=== PATIENT | male | born 1975 | race Caucasian/White ===

== ENCOUNTER 2019-07-25 19:38 | Inpatient (IN) ==
[2019-07-25] MEDS ORDERED: *HR* Ticagrelor 90 MG TABLET ONE (19:40)
[2019-07-25] MEDS ORDERED: *HR* Heparin 5,000 UNIT/ML VIAL ONE (19:40)
[2019-07-25] MEDS ORDERED: Aspirin 81 MG TAB.CHEW ONE (19:41)
[2019-07-25] MEDS ORDERED: *HR* Heparin 5,000 UNIT/ML VIAL IVP PRN ×2 (19:48)
[2019-07-25] MEDS ORDERED: *HR* Heparin 5,000 UNIT/ML VIAL IVP ONE (19:48)
[2019-07-25 19:55] LABS: Hematocrit 48.3 % (37.5-50.1); Hemoglobin 15.7 g/dL (12.9-16.9); Mean Corpuscular HGB Conc 32.5 g/dL (31.6-35.5); Mean Corpuscular Hemoglobin 28.4 pg (28.0-33.3); Mean Corpuscular Volume 87.5 fL (83.0-100.0); Mean Platelet Volume 11.2 fL (9.4-12.4); Platelet Count 246 K/mcL (140-400); Red Blood Count 5.52 M/mcL (4.19-5.50); Red Cell Distribution Width 13.7 % (11.5-14.5); White Blood Count 10.8 K/mcL (4.3-11.1)
[2019-07-25] MEDS ORDERED: Heparin 25,000 UNIT/250 ML D5W 25,000 UNIT/250 ML IV.SOLN IVC SCH (20:00)
[2019-07-25 20:02] LABS: Heparin anti-factor XA UFH < 0.04 IU/mL (0.30-0.70); INR 0.9; Prothrombin Time 10.3 Seconds (9.4-12.1)
[2019-07-25 20:05] LABS: Activated Partial Thrombo Time 30.1 Seconds (26.0-36.0)
[2019-07-25] MEDS ORDERED: *HR* Ticagrelor 90 MG TABLET PO ONE (20:05)
[2019-07-25] MEDS ORDERED: ISOVUE-370 200 ML INFUS..BTL ONE ×2 (20:16→21:02)
[2019-07-25] MEDS ORDERED: Heparin 1,000 UNITS/500 mL 500 ML ONE (20:16)
[2019-07-25] MEDS ORDERED: Nitroglycerin 1,000 MCG/10 ML VIAL IV ONE (20:16)
[2019-07-25] MEDS ORDERED: 0.9 % Sodium Chloride 2,000 ML ONE (20:16)
[2019-07-25] MEDS ORDERED: *HR* Heparin 10,000 UNIT/10 ML VIAL ONE ×2 (20:16→21:02)
[2019-07-25] MEDS ORDERED: *HR* FentaNYL (PF) 100 MCG/2 ML VIAL ONE ×2 (20:24→21:18)
[2019-07-25] MEDS ORDERED: *HR* Midazolam HCl 2 MG/2 ML VIAL ONE (20:24)
[2019-07-25] MEDS ORDERED: Tirofiban 12.5 MG/250ML 12.5 MG/250 ML BAG IVC SCH (20:30)
[2019-07-25] MEDS ORDERED: Tirofiban 12.5 MG/250ML 12.5 MG/250 ML BAG ONE (20:47)
[2019-07-25 20:51] LABS: BUN/Creatinine Ratio 20 (6-26); Blood Urea Nitrogen 17 mg/dL (6-20); Calcium 9.4 mg/dL (8.6-10.3); Carbon Dioxide 28 mEq/L (23-29); Chloride 103 mEq/L (98-107); Glucose 119 mg/dL (70-105); Osmolality,Calculated 291 (280-300); Sodium 139 mEq/L (136-145); eGFR For African Americans > 60 (> 60); eGFR For Non-African Americans > 60 (> 60)
[2019-07-25 20:56] LABS: Troponin I 0.98 ng/mL (< 0.04)
[2019-07-26] MEDS ORDERED: *HR* HYDROcodone/Acet 7.5/325 mg TABLET PO ONE (04:06)
[2019-07-26 04:15] LABS: Basophils # 0.1 K/mcL (0.0-0.2); Basophils % 0.7 %; Eosinophils # 0.6 K/mcL (0.0-0.6); Eosinophils % 7.7 %; Hematocrit 44.9 % (37.5-50.1); Hemoglobin 14.9 g/dL (12.9-16.9); Immature Granulocytes % 0.2 % (0-4); Lymphocytes # 1.6 K/mcL (0.6-4.6); Lymphocytes % 19.5 %; Mean Corpuscular HGB Conc 33.2 g/dL (31.6-35.5); Mean Corpuscular Hemoglobin 28.7 pg (28.0-33.3); Mean Corpuscular Volume 86.5 fL (83.0-100.0); Mean Platelet Volume 11.3 fL (9.4-12.4); Monocytes # 0.7 K/mcL (0.0-1.3); Monocytes % 7.9 %; Neutrophils # 5.3 K/mcL (1.6-8.9); Platelet Count 243 K/mcL (140-400); Red Blood Count 5.19 M/mcL (4.19-5.50); Red Cell Distribution Width 13.8 % (11.5-14.5); White Blood Count 8.4 K/mcL (4.3-11.1)
[2019-07-26 04:30] LABS: BUN/Creatinine Ratio 19 (6-26); Blood Urea Nitrogen 12 mg/dL (6-20); Carbon Dioxide 26 mEq/L (23-29); Chloride 105 mEq/L (98-107); Glucose 111 mg/dL (70-105); Osmolality,Calculated 286 (280-300); Sodium 138 mEq/L (136-145); eGFR For African Americans > 60 (> 60); eGFR For Non-African Americans > 60 (> 60)
[2019-07-26] MEDS ORDERED: Perflutren Lipid Microsphere 1.3 ML in 0.9 % Sodium Chloride 8.7 ML IVP ONE (07:59)
[2019-07-26] MEDS ORDERED: Temazepam 15 MG CAPSULE PO PRN (08:13)
[2019-07-26] MEDS ORDERED: *HR* HYDROcodone/Acet 7.5/325 mg TABLET PO PRN (08:13)
[2019-07-26] MEDS ORDERED: Nitroglycerin 0.4 MG TAB.SUBL SL PRN ×2 (08:15→10:32)
[2019-07-26] MEDS ORDERED: Aspirin 81 MG TAB.CHEW PO SCH (09:00)
[2019-07-26] MEDS ORDERED: Loratadine 10 MG TABLET PO SCH (09:00)
[2019-07-26] MEDS ORDERED: methocarbamoL 750 MG TABLET PO SCH (09:00)
[2019-07-26] MEDS ORDERED: *HR* Ticagrelor 90 MG TABLET PO SCH (09:00)
[2019-07-26] MEDS ORDERED: BuPROPion XL (24 HR) 150 MG TABLET PO SCH (09:00)
[2019-07-26] MEDS ORDERED: Cholecalciferol (D-3) 1,000 UNIT (25MCG) TABLET PO SCH (09:00)
[2019-07-26] MEDS ORDERED: Pregabalin 75 MG CAPSULE PO SCH (09:00)
[2019-07-26] MEDS: *HR* HYDROcodone/Acet 7.5/325 mg TABLET PO PRN ×2 (12:00→20:10)
[2019-07-26] MEDS: methocarbamoL 750 MG TABLET PO SCH ×2 (16:58→20:10)
[2019-07-26] MEDS ORDERED: *HR* Heparin 5,000 UNIT/ML VIAL SQ SCH (18:00)
[2019-07-26] MEDS: *HR* Heparin 5,000 UNIT/ML VIAL SQ SCH (18:14)
[2019-07-26] MEDS: Pregabalin 75 MG CAPSULE PO SCH (20:09)
[2019-07-26] MEDS: *HR* Ticagrelor 90 MG TABLET PO SCH (20:11)
[2019-07-26] MEDS: Temazepam 15 MG CAPSULE PO PRN (20:11)
[2019-07-27 04:43] LABS: Basophils # 0.1 K/mcL (0.0-0.2); Basophils % 0.6 %; Eosinophils # 0.5 K/mcL (0.0-0.6); Eosinophils % 5.2 %; Hematocrit 45.2 % (37.5-50.1); Hemoglobin 15.2 g/dL (12.9-16.9); Immature Granulocytes % 0.3 % (0-4); Lymphocytes # 2.1 K/mcL (0.6-4.6); Lymphocytes % 20.6 %; Mean Corpuscular HGB Conc 33.6 g/dL (31.6-35.5); Mean Corpuscular Hemoglobin 29.3 pg (28.0-33.3); Mean Corpuscular Volume 87.1 fL (83.0-100.0); Mean Platelet Volume 11.6 fL (9.4-12.4); Monocytes # 0.9 K/mcL (0.0-1.3); Monocytes % 8.7 %; Neutrophils # 6.5 K/mcL (1.6-8.9); Platelet Count 221 K/mcL (140-400); Red Blood Count 5.19 M/mcL (4.19-5.50); Segmented Neutrophils % 64.6 %; White Blood Count 10.1 K/mcL (4.3-11.1)
[2019-07-27 05:02] LABS: BUN/Creatinine Ratio 22 (6-26); Blood Urea Nitrogen 14 mg/dL (6-20); Calcium 9.4 mg/dL (8.6-10.3); Carbon Dioxide 26 mEq/L (23-29); Chloride 104 mEq/L (98-107); Chol/HDL Ratio 5.8 (0-4.9); Cholesterol 197 mg/dL (< 200); Glucose 100 mg/dL (70-105); HDL Cholesterol 34 mg/dL (40-59); LDL Cholesterol,Calculated 87 mg/dL (0-99); Osmolality,Calculated 283 (280-300); Sodium 136 mEq/L (136-145); Triglycerides 378 mg/dL (< 150); eGFR For African Americans > 60 (> 60); eGFR For Non-African Americans > 60 (> 60)
[2019-07-27] MEDS: *HR* Heparin 5,000 UNIT/ML VIAL SQ SCH ×2 (05:54→18:20)
[2019-07-27] MEDS: Isosorbide MONOnitrate (24 HR) 30 MG TAB.ER.24H PO SCH (08:23)
[2019-07-27] MEDS: Pregabalin 75 MG CAPSULE PO SCH ×2 (08:23→20:08)
[2019-07-27] MEDS: Loratadine 10 MG TABLET PO SCH (08:23)
[2019-07-27] MEDS: Cholecalciferol (D-3) 1,000 UNIT (25MCG) TABLET PO SCH (08:23)
[2019-07-27] MEDS: Aspirin 81 MG TAB.CHEW PO SCH (08:24)
[2019-07-27] MEDS: *HR* Ticagrelor 90 MG TABLET PO SCH ×2 (08:24→20:09)
[2019-07-27] MEDS: methocarbamoL 750 MG TABLET PO SCH ×3 (08:24→20:08)
[2019-07-27] MEDS: BuPROPion XL (24 HR) 150 MG TABLET PO SCH (08:25)
[2019-07-27] MEDS: *HR* HYDROcodone/Acet 7.5/325 mg TABLET PO PRN ×3 (08:27→21:10)
[2019-07-27] MEDS: Temazepam 15 MG CAPSULE PO PRN (21:10)
[2019-07-28] MEDS: *HR* Heparin 5,000 UNIT/ML VIAL SQ SCH (04:59)
[2019-07-28] MEDS: BuPROPion XL (24 HR) 150 MG TABLET PO SCH (08:09)
[2019-07-28] MEDS: Cholecalciferol (D-3) 1,000 UNIT (25MCG) TABLET PO SCH (08:10)
[2019-07-28] MEDS: Pregabalin 75 MG CAPSULE PO SCH (08:10)
[2019-07-28] MEDS: *HR* HYDROcodone/Acet 7.5/325 mg TABLET PO PRN (08:10)
[2019-07-28] MEDS: Isosorbide MONOnitrate (24 HR) 30 MG TAB.ER.24H PO SCH (08:11)
[2019-07-28] MEDS: *HR* Ticagrelor 90 MG TABLET PO SCH (08:11)
[2019-07-28] MEDS: methocarbamoL 750 MG TABLET PO SCH (08:11)
[2019-07-28] MEDS: Aspirin 81 MG TAB.CHEW PO SCH (08:11)
[2019-07-28] MEDS: Loratadine 10 MG TABLET PO SCH (08:11)
[2019-07-28] MEDS ORDERED: lisinopriL 5 MG TABLET PO SCH (11:45)
[2019-07-28 13:06] VITALS: BP 103/64
== END 2019-07-28 13:29 | disposition home or self-care (01) | DRG 174 ==
LOC: ICNU 19:38 → EMEROOARM 19:38 → ICNU 20:31 → OBSVTOIN 20:50 → 3NENU 07-26 11:24
PROVIDERS: ADMIT Internal Medicine Cardiovascular Disease; ATTEND Student in an Organized Health Care Education/Training Program

== ENCOUNTER 2021-06-07 04:06 | Inpatient (IN) ==
[2021-06-07] MEDS ORDERED: Naloxone 0.4 MG/ML INJ IVP PRN ×2 (06:54→16:06)
[2021-06-07] MEDS ORDERED: 0.9 % Sodium Chloride 1,000 ML IVC SCH ×2 (07:00→16:06)
[2021-06-07] MEDS ORDERED: Ondansetron 4 MG/2 ML VIAL IVP PRN ×3 (07:38→16:06)
[2021-06-07] MEDS ORDERED: *HR* Promethazine 25 MG/ML VIAL IM PRN ×2 (07:38→16:06)
[2021-06-07 08:19] LABS: Basophils # 0.1 K/mcL (0.0-0.2); Basophils % 0.5 %; Eosinophils # 0.3 K/mcL (0.0-0.6); Hematocrit 51.3 % (37.5-50.1); Hemoglobin 17.2 g/dL (12.9-16.9); Immature Granulocytes % 0.3 % (0-4); Lymphocytes # 1.7 K/mcL (0.6-4.6); Lymphocytes % 13.4 %; Mean Corpuscular HGB Conc 33.5 g/dL (31.6-35.5); Mean Corpuscular Hemoglobin 28.7 pg (28.0-33.3); Mean Corpuscular Volume 85.5 fL (83.0-100.0); Mean Platelet Volume 11.4 fL (9.4-12.4); Monocytes # 0.7 K/mcL (0.0-1.3); Monocytes % 5.6 %; Neutrophils # 9.7 K/mcL (1.6-8.9); Platelet Count 263 K/mcL (140-400); Red Cell Distribution Width 13.8 % (11.5-14.5); Segmented Neutrophils % 78.2 %; White Blood Count 12.4 K/mcL (4.3-11.1)
[2021-06-07 08:36] LABS: Alanine Aminotransferase 49 Units/L (7-52); Albumin 4.8 g/dL (3.5-5.7); Albumin/Globulin Ratio 1.4 (1.1-2.2); Alkaline Phosphatase 103 Units/L (34-104); Aspartate Amino Transferase 63 Units/L (13-39); BUN/Creatinine Ratio 23 (6-26); Bilirubin,Total 0.8 mg/dL (0.3-1.0); Blood Urea Nitrogen 18 mg/dL (6-20); Calcium 10.5 mg/dL (8.6-10.3); Carbon Dioxide 27 mEq/L (23-29); Chloride 98 mEq/L (98-107); Globulin 3.5 g/dL (2.4-3.5); Glucose 139 mg/dL (70-105); Magnesium 2.2 mg/dL (1.6-2.6); Osmolality,Calculated 284 (280-300); Phosphorous 4.9 mg/dL (2.7-4.5); Potassium 4.2 mEq/L (3.5-5.1); Sodium 135 mEq/L (136-145); Total Protein 8.3 g/dL (6.4-8.9); eGFR For African Americans > 60 (> 60); eGFR For Non-African Americans > 60 (> 60)
[2021-06-07] MEDS ORDERED: Lidocaine -MPF 2% 5 ML VIAL ONE (09:43)
[2021-06-07] MEDS ORDERED: *HR* Succinylcholine 200 MG/10 ML VIAL IVP ONE (09:43)
[2021-06-07] MEDS ORDERED: *HR* Rocuronium Bromide 50 MG/5 ML VIAL ONE ×2 (09:43→12:11)
[2021-06-07] MEDS ORDERED: Lidocaine HCL 4 ML Topical Solution (Laryng-O-Jet Kit Sterile Pak) TP ONE (09:43)
[2021-06-07] MEDS ORDERED: *HR* FentaNYL (PF) 100 MCG/2 ML VIAL ONE ×2 (09:43→12:03)
[2021-06-07] MEDS ORDERED: *HR* Midazolam HCl 2 MG/2 ML VIAL ONE (09:43)
[2021-06-07] MEDS ORDERED: *HR* Propofol 200 MG/20 ML VIAL IVP ONE (09:43)
[2021-06-07] MEDS ORDERED: Ondansetron 4 MG/2 ML VIAL ONE (09:43)
[2021-06-07] MEDS ORDERED: Ketorolac 30 MG/ML VIAL ONE (09:43)
[2021-06-07] MEDS ORDERED: *HR* HYDROmorphone (PF) 1 MG/ML SYRINGE IVP PRN (10:55)
[2021-06-07] MEDS ORDERED: *HR* FentaNYL (PF) 100 MCG/2 ML VIAL IVP PRN (10:55)
[2021-06-07] MEDS ORDERED: Clindamycin 600 MG/50 ML 600 MG/50 ML IV.SOLN IVPB ONE (10:56)
[2021-06-07] MEDS ORDERED: Ketamine HCL *QUVA* 50mg (1mL) SYRINGE ONE (13:11)
[2021-06-07] MEDS ORDERED: *HR* HYDROMORPHONE 2 MG/ML VIAL ONE (13:26)
[2021-06-07] MEDS ORDERED: Albuterol 2.5 MG/3 ML NEBULIZER IH PRN (14:37)
[2021-06-07] MEDS ORDERED: Ipratropium Neb 0.5 MG NEBULIZER IH PRN (14:37)
[2021-06-07] MEDS ORDERED: methocarbamoL 750 MG TABLET PO PRN (16:06)
[2021-06-07] MEDS ORDERED: Gabapentin 300 MG CAPSULE PO SCH (16:06)
[2021-06-07] MEDS ORDERED: Nitroglycerin 0.4 MG TAB.SUBL SL PRN (16:06)
[2021-06-07] MEDS ORDERED: Temazepam 15 MG CAPSULE PO PRN (16:23)
[2021-06-07] MEDS: Clindamycin 600 MG/50 ML 600 MG/50 ML IV.SOLN IVPB SCH (17:24)
[2021-06-07] MEDS: Acetaminophen IV 1,000 MG/100 ML BAG IVPB SCH (17:25)
[2021-06-07] MEDS: Pregabalin 50 MG CAPSULE PO SCH (17:26)
[2021-06-07] MEDS: Ketorolac 30 MG/ML VIAL IVP SCH (17:26)
[2021-06-07] MEDS: *HR* Heparin 5,000 UNIT/ML VIAL SQ SCH (17:26)
[2021-06-07] MEDS ORDERED: *HR* Heparin 5,000 UNIT/ML VIAL SQ SCH (18:00)
[2021-06-07] MEDS ORDERED: Pregabalin 50 MG CAPSULE PO SCH (21:00)
[2021-06-07] MEDS: *HR* Ticagrelor 90 MG TABLET PO SCH (21:10)
[2021-06-07] MEDS: carvediloL 6.25 MG TABLET PO SCH (21:13)
[2021-06-08] MEDS: Clindamycin 600 MG/50 ML 600 MG/50 ML IV.SOLN IVPB SCH ×2 (00:10→08:13)
[2021-06-08] MEDS: Acetaminophen IV 1,000 MG/100 ML BAG IVPB SCH ×4 (00:10→17:12)
[2021-06-08] MEDS: Ketorolac 30 MG/ML VIAL IVP SCH ×2 (00:10→05:25)
[2021-06-08] MEDS: *HR* Heparin 5,000 UNIT/ML VIAL SQ SCH ×2 (05:26→17:15)
[2021-06-08 07:02] LABS: Basophils % 0.2 %; Eosinophils % 0.2 %; Hematocrit 43.8 % (37.5-50.1); Immature Granulocytes % 0.2 % (0-4); Lymphocytes # 1.5 K/mcL (0.6-4.6); Lymphocytes % 11.8 %; Mean Corpuscular HGB Conc 33.6 g/dL (31.6-35.5); Mean Corpuscular Hemoglobin 29.6 pg (28.0-33.3); Mean Corpuscular Volume 88.3 fL (83.0-100.0); Mean Platelet Volume 11.6 fL (9.4-12.4); Monocytes # 1.2 K/mcL (0.0-1.3); Monocytes % 9.5 %; Neutrophils # 9.8 K/mcL (1.6-8.9); Platelet Count 218 K/mcL (140-400); Red Blood Count 4.96 M/mcL (4.19-5.50); Red Cell Distribution Width 14.2 % (11.5-14.5); Segmented Neutrophils % 78.1 %; White Blood Count 12.5 K/mcL (4.3-11.1)
[2021-06-08 07:07] LABS: Hemoglobin 14.7 g/dL (12.9-16.9)
[2021-06-08] MEDS ORDERED: *HR* HYDROmorphone 4 MG TABLET PO PRN ×2 (07:57→17:03)
[2021-06-08] MEDS: hydroCHLOROthiazide 25 MG TABLET PO SCH (08:10)
[2021-06-08] MEDS: carvediloL 6.25 MG TABLET PO SCH ×2 (08:11→16:16)
[2021-06-08] MEDS: lisinopriL 5 MG TABLET PO SCH (08:13)
[2021-06-08] MEDS: Isosorbide MONOnitrate (24 HR) 30 MG TAB.ER.24H PO SCH (08:13)
[2021-06-08] MEDS: *HR* Ticagrelor 90 MG TABLET PO SCH (08:13)
[2021-06-08] MEDS: Aspirin 81 MG TAB.CHEW PO SCH (08:13)
[2021-06-08] MEDS: Pregabalin 50 MG CAPSULE PO SCH ×2 (08:13→19:39)
[2021-06-08] MEDS ORDERED: *HR* HYDROmorphone 2 MG TABLET PO PRN (08:15)
[2021-06-08] MEDS: *HR* HYDROcodone/Acet 7.5/325 mg TABLET PO PRN ×2 (10:07→16:16)
[2021-06-08 12:46] LABS: ABG Base Excess 0 mEq/L (-2 to 3); ABG HCO3 26 mEq/L (21-27); ABG Oxygen Saturation 94 % (95-98); ABG PCO2 47 mmHg (35-45); ABG PH 7.35 pH Units (7.32-7.45); ABG PO2 75 mmHg (85-104); ABG TCO2 28 mEq/L (20-26)
[2021-06-08] MEDS ORDERED: *HR* HYDROmorphone (PF) 1 MG/ML SYRINGE IVP PRN (17:02)
[2021-06-09 01:05] LABS: Basophils % 0.2 %; Eosinophils # 0.1 K/mcL (0.0-0.6); Eosinophils % 1.1 %; Hematocrit 42.9 % (37.5-50.1); Hemoglobin 13.7 g/dL (12.9-16.9); Immature Granulocytes % 0.4 % (0-4); Lymphocytes # 1.5 K/mcL (0.6-4.6); Lymphocytes % 12.2 %; Mean Corpuscular HGB Conc 31.9 g/dL (31.6-35.5); Mean Corpuscular Hemoglobin 28.6 pg (28.0-33.3); Mean Corpuscular Volume 89.6 fL (83.0-100.0); Mean Platelet Volume 11.8 fL (9.4-12.4); Monocytes # 1.3 K/mcL (0.0-1.3); Monocytes % 10.4 %; Neutrophils # 9.4 K/mcL (1.6-8.9); Platelet Count 208 K/mcL (140-400); Red Blood Count 4.79 M/mcL (4.19-5.50); Red Cell Distribution Width 14.6 % (11.5-14.5); Segmented Neutrophils % 75.7 %; White Blood Count 12.5 K/mcL (4.3-11.1)
[2021-06-09 01:30] LABS: BUN/Creatinine Ratio 30 (6-26); Blood Urea Nitrogen 30 mg/dL (6-20); Calcium 8.9 mg/dL (8.6-10.3); Carbon Dioxide 26 mEq/L (23-29); Chloride 99 mEq/L (98-107); Glucose 143 mg/dL (70-105); Magnesium 2.1 mg/dL (1.6-2.6); Osmolality,Calculated 287 (280-300); Phosphorous 2.6 mg/dL (2.7-4.5); Potassium 3.8 mEq/L (3.5-5.1); Sodium 134 mEq/L (136-145); eGFR For African Americans > 60 (> 60); eGFR For Non-African Americans > 60 (> 60)
[2021-06-09] MEDS: Acetaminophen IV 1,000 MG/100 ML BAG IVPB SCH ×5 (02:33→23:57)
[2021-06-09] MEDS: *HR* HYDROcodone/Acet 7.5/325 mg TABLET PO PRN ×3 (02:37→14:37)
[2021-06-09] MEDS: *HR* Heparin 5,000 UNIT/ML VIAL SQ SCH ×2 (05:15→18:33)
[2021-06-09] MEDS: hydroCHLOROthiazide 25 MG TABLET PO SCH (08:31)
[2021-06-09] MEDS: Cholecalciferol (D-3) 1,000 UNIT (25MCG) TABLET PO SCH (08:31)
[2021-06-09] MEDS: lisinopriL 5 MG TABLET PO SCH (08:31)
[2021-06-09] MEDS: carvediloL 6.25 MG TABLET PO SCH ×2 (08:31→16:13)
[2021-06-09] MEDS: Pregabalin 50 MG CAPSULE PO SCH ×2 (08:31→20:40)
[2021-06-09] MEDS: Aspirin 81 MG TAB.CHEW PO SCH (08:31)
[2021-06-09] MEDS: Loratadine 10 MG TABLET PO SCH (08:32)
[2021-06-09] MEDS: Isosorbide MONOnitrate (24 HR) 30 MG TAB.ER.24H PO SCH (08:32)
[2021-06-09] MEDS: Ibuprofen 800 MG TABLET PO SCH ×3 (11:11→23:58)
[2021-06-09] MEDS: methocarbamoL 750 MG TABLET PO SCH ×3 (11:12→20:40)
[2021-06-10] MEDS: *HR* HYDROcodone/Acet 7.5/325 mg TABLET PO PRN ×2 (04:45→13:33)
[2021-06-10] MEDS: Acetaminophen IV 1,000 MG/100 ML BAG IVPB SCH ×2 (05:17→12:33)
[2021-06-10] MEDS: *HR* Heparin 5,000 UNIT/ML VIAL SQ SCH (05:18)
[2021-06-10] MEDS: Aspirin 81 MG TAB.CHEW PO SCH (08:46)
[2021-06-10] MEDS: Pregabalin 50 MG CAPSULE PO SCH (08:46)
[2021-06-10] MEDS: carvediloL 6.25 MG TABLET PO SCH (08:46)
[2021-06-10] MEDS: hydroCHLOROthiazide 25 MG TABLET PO SCH (08:46)
[2021-06-10] MEDS: Cholecalciferol (D-3) 1,000 UNIT (25MCG) TABLET PO SCH (08:46)
[2021-06-10] MEDS: Loratadine 10 MG TABLET PO SCH (08:47)
[2021-06-10] MEDS: methocarbamoL 750 MG TABLET PO SCH (08:47)
[2021-06-10] MEDS: Isosorbide MONOnitrate (24 HR) 30 MG TAB.ER.24H PO SCH (08:47)
[2021-06-10] MEDS: lisinopriL 5 MG TABLET PO SCH (08:47)
[2021-06-10] MEDS: Ibuprofen 800 MG TABLET PO SCH (08:47)
[2021-06-10 11:05] VITALS: BP 137/79; PULSE 97; TEMP 98.1; O2SAT 97
== END 2021-06-10 14:56 | disposition home or self-care (01) | DRG 227 ==
LOC: 3ANU → SUATTDRO 06:08
PROVIDERS: ADMIT Family Medicine; ATTEND Internal Medicine